=== PATIENT | male | born 1975 | race Caucasian/White ===

== ENCOUNTER 2021-10-07 06:02 | Emergency (ER) | payer OTHER, SELFPAY ==
--- NOTE | ~2021-10-07 | XR_ITS ---
EXAMINATION: XR CHEST CLINICAL INFORMATION: Sudden onset chest tightness COMPARISON: None TECHNIQUE: Frontal view of the chest was obtained. FINDINGS: The lungs are clear with no focal consolidation. No evidence of pneumothorax, pulmonary edema, or pleural effusions. The cardiomediastinal silhouette is unremarkable. No acute osseous findings. XR/XR chest 1V IMPRESSION: No acute cardiopulmonary findings.
[2021-10-07 06:13] VITALS: BP 125/77; BP 140/88; PULSE 77; PULSE 90; RESP 16; TEMP 36.6; O2SAT 98; O2SAT 99; BMI 30.5
--- NOTE | 2021-10-07 06:31 | ED_ITS ---
HPI - Chest Pain General Chief Complaint: Chest Pain Stated Complaint: cp Time Seen by Provider: 10/07/21 06:31 Source: patient Mode of arrival: EMS Limitations: no limitations History of Present Illness HPI narrative: 45-year-old male who presents emergency department for evaluation of chest pain. The patient states that he got up this morning at 04:30 hours and went to work. 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 He states that approximately 20 minutes after work he developed a discomfort in his chest. He points to his sternum when asked to localize the discomfort. He initially th ought that was a gas pain and he took an antacid without any relief. The pain then became a tightness which she states waxed and waned in intensity but was 7/10 at its worst. He states he does have anxiety and he took Xanax 0.25 mg orally with no relief of his discomfort. He developed nausea and attempted to make himself vomit but was unsuccessful. He states that his tightness got worse and he was doubled over and his colleagues called an ambulance. The paramedics did a 12 EKG in the field which was unremarkable. They gave him four 81 mg aspirin to chew and 1 sublingual nitroglycerin with no relief his discomfort. At the time of my evaluation he states that he has continued to have chest tightness and that it 7/10, this pain is been present for 1 hour. He denied radiation of the pain to his neck, jaw or back. He denied fever, chills, sore throat, cough, diaphoresis, lightheadedness or dizziness. He has no significant cardiac risk factors. There is no family history of early coronary artery disease. MD complaint: chest pain Pertinent past history: other (GERD) Onset (ago): hour(s) (1) Timing of current episode: constant (Waxing and waning in intensity) Prior episodes: No Onset: during exertion (Moving boxes at work) Pain location: substernal Pain radiation: none Severity: severe Pain scale (0-10): 7 Quality: tightness Relieving factors: nothing Exacerbating factors: nothing Associated symptoms: nausea Treatment prior to arrival: aspirin and nitroglycerin Risk Factors Coronary artery disease risk factors: none Thoracic aortic dissection risk factors: none Related Data Allergies Allergy/AdvReac Type Severity Reaction Status Date / Time acetaminophen [From PERCOCET] Allergy Unknown RASH Unverified 12/04/19 14:58 oxycodone [From PERCOCET] Allergy Unknown RASH Unverified 12/04/19 14:58 methylprednisolone AdvReac Unknown ANXIETY Unverified 12/04/19 14:58 [From MEDROL] Review of Systems Review of Systems: Yes all other systems are reviewed and are negative [facility] Past Medical History [facility] Narrative: Past medical history: Anxiety, GERD-takes omeprazole daily. Past surgical history: Back surgery x2 2009 2010. Social history: Patient denies tobacco and alcohol use. He does smoke marijuana on a regular basis but states he has not smoked marijuana in 5 days. Social History Social History Patient Tobacco Use Status: Never used Tobacco Use of substances other than those prescribed or required for medical reasons: Yes Substance Use Type: Marijuana Advance Directives: No Physical Exam Vital Signs: Vital Signs: Last Vital Signs Temp 97.8 F 10/07/21 06:13 Pulse 68 10/07/21 11:44 Resp 18 10/07/21 11:44 BP 141/81 H 10/07/21 11:44 Pulse Ox 96 10/07/21 11:44 O2 Del Method 10/07/21 11:44 BMI result Body Mass Index 30.5 Const: General: cooperative and no acute distress Orientation/consciousness: oriented to person and oriented to place Limitations: no limitations HEENT: Head: Yes normal to inspection, Yes normocephalic and Yes atraumatic Ears: external ears normal General nose exam: Normal external nose present Face and sinus: Yes normal facial exam Mouth: Normal oral and palatal mucosa present Throat: Yes posterior oropharynx normal Eyes: General: appearance normal, both eyes and all related structures Pupils: Equal, round and reactive pupils present Neck: Neck: Yes normal visual inspection, Yes no lymphadenopathy, Yes trachea midline and Yes supple Chest: Chest palpation & inspection: normal inspection of the chest and normal palpation of entire chest wall Resp: Effort & Inspection: normal respiratory effort and able to speak in complete sentences Auscultation: clear to auscultation bilaterally Cardio: Rate: regular rate Rhythm: regular rhythm Heart sounds: S1 normal heart sound present, S2 normal heart sound present and no murmurs GI: Inspection: Yes normal to inspection Palpation (GI): Soft to palpation, nontender and no guarding Auscultation: normal bowel sounds : General: Yes no CVA tenderness Back/Spine/Pelvis: Back: no CVA tenderness Skin: General skin exam: no rashes or lesions noted Neuro: General: oriented to person and oriented to place Cranial nerves: Yes CN's II-XII intact bilaterally and Yes Equal, round and reactive pupils present Cognition (Neuro): normal cognition Motor exam (neuro): 5/5 motor strength present throughout Extrem: General: Yes normal to inspection Psych: Appearance: grossly normal Speech and movement: Normal speech and movement present Affect: normal affect Attitude: cooperative Thought process: Normal thought process present Thought content: Normal thought content present Course Course Course Narrative: 45-year-old male who presents emergency department for evaluation of sudden onset substernal chest pain associated with nausea and anxiety which started approximately 20 minutes after he arrived at work, 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 Patient took an antacid and Xanax 0.25 mg at work with no relief his pain his pain got worse and coworkers called an ambulance . The patient received 324 mg of aspirin to chew and nitroglycerin sublingually prior to coming to emergency department with no relief his discomfort. At the time of evaluation the patient was having substernal chest tightness 7/10. Pat ient's vital signs were normal examination was unremarkable. Twelve EKG done in the emergency department revealed no evidence for ischemia or myocardial injury. Laboratory evaluation was ordered. Chest x-ray will be obtained. The patient is PERC negative. Patient was ordered to get Toradol 30 mg IV and Versed 2 mg IV for his pain and anxiety. Patient will be kept on a cardiac and O2 saturati on monitor while in the department. 1119: Laboratory evaluation: CBC and CMP were normal. COVID-19 was negative. First troponin was below detectable limits. Repeat 3 hour troponin was also below detectable limits. Radiology evaluation: Chest x-ray was unremarkable. EKG: Normal sinus rhythm with a rate of 62, prolonged QRS of 112 milliseconds, inverted T-waves V1 in V 3 otherwise unremarkable. The patient got initial improvement with the above treatment but then his chest pain returned. I will repeat his EKG. Patient is PERC negative. The patient's negative troponins are reassuring. Patient's presentation is most likely caused by his GERD I suspect that he has esophageal spasm. Patient was ordered to get Maalox 30 cc, viscous lidocaine 10 cc and 10 cc orally to see if this improves his pain. 1209: Repeat EKG was unchanged from the previous. Patient did get improvement with the above oral medications. The patient states that he does not take omeprazole on a regular basis but only takes it as needed . Patient was advised to take Pepcid (famotidine) 20 mg once a day for 4-6 weeks. 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 MDM - Chest Pain Lab Data Result diagrams: 10/07/21 06:58 10/07/21 06:58 Labs: Lab Results 10/07/21 10/07/21 10/07/21 Range/Units 06:58 06:58 06:58 WBC 6.0 (4.8-10.8) X10*3/uL RBC 4.65 (4.60-5.80) X10*6/uL Hgb 13.6 L (14.0-18.0) g/dl Hct 39.9 L (42.0-52.0) % MCV 85.8 (80.0-98.0) fL MCH 29.2 (27.0-33.0) pg MCHC 34.1 (31.0-36.0) g/dl RDW 13.1 (11.0-16.0) % Plt Count 336 (160-400) X10*3/uL MPV 8.6 L (9.4-12.4) fL Immature Gran % (Auto) 0.3 (0.0-0.4) % Neut % (Auto) 65.2 (45-73) % Lymph % (Auto) 25.1 (20-40) % [place] % (Auto) 8.0 (2-11) % Eos % (Auto) 0.7 (0-4) % Baso % (Auto) 0.7 (0-2) % Lymph # (Auto) 1.5 (1.2-4.9) X10*3/uL [place] # (Auto) 0.5 (0.1-1.2) X10*3/uL Eos # (Auto) 0.0 (0.0-0.4) X10*3/uL Baso # (Auto) 0.0 (0.0-0.2) X10*3/uL Abs Immat Gran (auto) 0.02 (0.00-0.03) X10*3/uL Absolute Neuts (auto) 3.9 (2.0-8.3) x10*3/uL Absolute Nucleated RBC 0.000 (0.0-0.012) X10*3/uL Nucleated RBC % (auto) 0.0 (0.0-0.2) /100WBC PT (10.0-13.1) SEC INR (0.9-1.1) APTT (24.1-38.0) SEC Sodium 140 (135-145) mmol/L Potassium 3.6 (3.3-5.1) mmol/L Chloride 107 (96-108) mmol/L Carbon Dioxide 24 (22-29) mmol/L Anion Gap 13 (12-20) BUN 16 (9-16) mg/dL Creatinine 0.80 (0.5-1.4) mg/dL Estim Creat Clear Calc 141.0 Estimated GFR > 60 Random Glucose 101 (60-115) mg/dL Calcium 9.2 (8.4-10.2) mg/dL Total Bilirubin 0.6 (0.0-1.0) mg/dL AST 16 (5-37) U/L ALT 18 (0-40) U/L Alkaline Phosphatase 62 (39-117) U/L Troponin I High Sens (<3.5-35.0) ng/L Total Protein 6.9 (6.5-8.0) g/dL Albumin 4.7 (3.5-5.0) g/dL Lipase 22 (8-78) U/L COVID-19 (BETY) Negative (Negative) COVID-19 Clin Com See Note 10/07/21 10/07/21 10/07/21 Range/Units 06:58 06:58 10:26 WBC (4.8-10.8) X10*3/uL RBC (4.60-5.80) X10*6/uL Hgb (14.0-18.0) g/dl Hct (42.0-52.0) % MCV (80.0-98.0) fL MCH (27.0-33.0) pg MCHC (31.0-36.0) g/dl RDW (11.0-16.0) % Plt Count (160-400) X10*3/uL MPV (9.4-12.4) fL Immature Gran % (Auto) (0.0-0.4) % Neut % (Auto) (45-73) % Lymph % (Auto) (20-40) % [place] % (Auto) (2-11) % Eos % (Auto) (0-4) % Baso % (Auto) (0-2) % Lymph # (Auto) (1.2-4.9) X10*3/uL [place] # (Auto) (0.1-1.2) X10*3/uL Eos # (Auto) (0.0-0.4) X10*3/uL Baso # (Auto) (0.0-0.2) X10*3/uL Abs Immat Gran (auto) (0.00-0.03) X10*3/uL Absolute Neuts (auto) (2.0-8.3) x10*3/uL Absolute Nucleated RBC (0.0-0.012) X10*3/uL Nucleated RBC % (auto) (0.0-0.2) /100WBC PT 11.1 (10.0-13.1) SEC INR 1.0 (0.9-1.1) APTT 37.5 (24.1-38.0) SEC Sodium (135-145) mmol/L Potassium (3.3-5.1) mmol/L Chloride (96-108) mmol/L Carbon Dioxide (22-29) mmol/L Anion Gap (12-20) BUN (9-16) mg/dL Creatinine (0.5-1.4) mg/dL Estim Creat Clear Calc Estimated GFR Random Glucose (60-115) mg/dL Calcium (8.4-10.2) mg/dL Total Bilirubin (0.0-1.0) mg/dL AST (5-37) U/L ALT (0-40) U/L Alkaline Phosphatase (39-117) U/L Troponin I High Sens < 3.5 < 3.5 (<3.5-35.0) ng/L Total Protein (6.5-8.0) g/dL Albumin (3.5-5.0) g/dL Lipase (8-78) U/L COVID-19 (BETY) (Negative) COVID-19 Clin Com ECG Data ECG #1: Attestation: I personally reviewed and interpreted this ECG as follows: Interpretation: 0624: Normal sinus rhythm with a rate of 62, normal ID interval, prolonged QRS duration of 112 milliseconds, normal QTC of 434 milliseconds, no ST segment elevation, no ST segment depression, inverted T-waves in V 1 and V 3, no PACs, no PVCs, no Q-waves. Discharge Plan Discharge Clinical Impression: Chest pain, GERD (gastroesophageal reflux disease), Spasm of esophagus Patient Disposition: Home, Self-Care Instructions: Gastroesophageal Reflux Disease (ED), Esophageal Spasm (ED) Additional Instructions: Your laboratory evaluation was normal. Your troponin (marker of heart attack) initially was below detectable limits and the repeat 3 hour troponin was also below detectable limits which is very reassuring suggesting that your chest pain is not caused by a heart attack. Your chest x-ray was unremarkable per Your EKG is unchanged from baseline. At this time, I believe that your chest pain is due to too much acid in your stomach and this acid refluxing on to your esophagus (the tube that connects your mouth her stomach) causing you to have spasm of the esophagus muscle Take Pepcid (famotidine) 20 mg, 1 pill once a day for 4-6 weeks. This medic ation is an H2 raul and this reduces the amount of acid that your stomach makes and help her stomach and esophagus heal.
[2021-10-07] MEDS: Ketorolac Tromethamine 15 MG/ML VIAL IVPUSH (06:42)
[2021-10-07 07:04] LABS: MANUAL DIFF FLAG NO
[2021-10-07 07:05] LABS: Basophils Percent Auto 0.7 % (0-2); Eosinophils Percent Auto 0.7 % (0-4); Hematocrit 39.9 % (42.0-52.0); Hemoglobin 13.6 g/dl (14.0-18.0); Imm Gran Abs Auto 0.02 X10*3/uL (0.00-0.03); Imm Gran Pct Auto 0.3 % (0.0-0.4); Lymphocytes Absolute Auto 1.5 X10*3/uL (1.2-4.9); Lymphocytes Percent Auto 25.1 % (20-40); Mean Corpuscular HGB Conc 34.1 g/dl (31.0-36.0); Mean Corpuscular Hemoglobin 29.2 pg (27.0-33.0); Mean Corpuscular Volume 85.8 fL (80.0-98.0); Mean Platelet Volume 8.6 fL (9.4-12.4); Monocytes Absolute Auto 0.5 X10*3/uL (0.1-1.2); Neutrophils Absolute Auto 3.9 x10*3/uL (2.0-8.3); Neutrophils Percent Auto 65.2 % (45-73); Platelet Count 336 X10*3/uL (160-400); Red Blood Count 4.65 X10*6/uL (4.60-5.80); Red Cell Distribution Width 13.1 % (11.0-16.0)
[2021-10-07 07:11] LABS: Prothrombin Time 11.1 SEC (10.0-13.1)
[2021-10-07 07:14] LABS: Partial Thromboplastin Time 37.5 SEC (24.1-38.0)
[2021-10-07 07:18] VITALS: BP 116/82; PULSE 69; RESP 18; O2SAT 97
[2021-10-07] MEDS: Midazolam HCl/PF 2 MG/2 ML VIAL IVPUSH (07:19)
--- NOTE | 2021-10-07 07:20 | ECG_ITS ---
Test Reason : CHEST PAIN Blood Pressure : / mmHG Vent. Rate : 062 BPM Atrial Rate : 062 BPM P-R Int : 160 ms QRS Dur : 112 ms QT Int : 428 ms P-R-T Axes : 018 062 029 degrees QTc Int : 434 ms Normal sinus rhythm [place] T wave changes - consider ischemia Abnormal ECG When compared with ECG of 17-JUN-2002 16:17, Precordial T wave changes noted Referred By: Miguel Collins Electronically Signed By:Jorge Del Castillo
[2021-10-07 07:22] LABS: COVID-19 Test Negative (Negative); IDNOW Serial# 08D9AD1C
[2021-10-07 07:28] LABS: Alanine Aminotransferase 18 U/L (0-40); Albumin Level 4.7 g/dL (3.5-5.0); Alkaline Phosphatase 62 U/L (39-117); Anion Gap 13 (12-20); Aspartate Amino Transferase 16 U/L (5-37); Bilirubin Total 0.6 mg/dL (0.0-1.0); Blood Urea Nitrogen 16 mg/dL (9-16); Calcium 9.2 mg/dL (8.4-10.2); Carbon Dioxide 24 mmol/L (22-29); Chloride 107 mmol/L (96-108); Estimated Glomerular Filt Rate > 60; Glucose Random 101 mg/dL (60-115); Lipase 22 U/L (8-78); Potassium 3.6 mmol/L (3.3-5.1); Sodium 140 mmol/L (135-145); Total Protein 6.9 g/dL (6.5-8.0)
[2021-10-07 07:30] LABS: Troponin-I High Sensitivity < 3.5 ng/L (<3.5-35.0)
[2021-10-07 09:48] VITALS: BP 129/82; PULSE 61; RESP 18; O2SAT 98
--- NOTE | 2021-10-07 09:49 | PC.NURSE ---
pt reports that the chest tightness is starting to come back, pain at 2/10 pt states it feels like gas
[2021-10-07 10:58] LABS: Troponin-I High Sensitivity < 3.5 ng/L (<3.5-35.0)
--- NOTE | 2021-10-07 11:21 | ECG_ITS ---
Test Reason : chest pain Blood Pressure : / mmHG Vent. Rate : 061 BPM Atrial Rate : 061 BPM P-R Int : 176 ms QRS Dur : 106 ms QT Int : 430 ms P-R-T Axes : 006 038 015 degrees QTc Int : 432 ms Normal sinus rhythm Normal ECG When compared with ECG of 07-OCT-2021 06:24, No significant change was found Referred By: Miguel Collins Electronically Signed By:Jorge Del Castillo
[2021-10-07] MEDS: Lidocaine HCl Viscous 2 % 15 ML SOLUTION 10 ML PO (11:40)
[2021-10-07] MEDS: Magnesium Hydrox/Alum Hydrox 30 ML ORAL.SUSP PO (11:40)
[2021-10-07] MEDS: PHENobarb/Hyoscy/Atropine/Scop 10 ML ELIXIR PO (11:41)
[2021-10-07 11:44] VITALS: BP 141/81; PULSE 68; RESP 18; O2SAT 96
[2021-10-07 12:30] VITALS: BP 129/83; PULSE 60; RESP 16; O2SAT 97
== END 2021-10-07 13:18 | disposition home or self-care (01) ==
PROVIDERS: Emergency Provider Emergency Medicine Emergency Medical Services
DX: R07.9 Chest pain, unspecified (principal); K21.9 Gastro-esophageal reflux disease without esophagitis; K22.4 Dyskinesia of esophagus; Z20.822 Contact with and (suspected) exposure to COVID-19; F12.90 Cannabis use, unspecified, uncomplicated
CPT/HCPCS: 36415; 71045; 80053; 83690; 84484; 85025; 85610; 85730; 87635; 93005; 96374; 96375; 99285; J1885; J2250

== ENCOUNTER → 2022-04-20 08:29 | Outpatient (BNVA) | payer OTHER, SELFPAY | PROVIDERS: Visit Provider Physician Assistant Medical | DX: S90.32XA Contusion of left foot, initial encounter (principal); W20.8XXA Other cause of strike by thrown, projected or falling object, initial encounter | CPT/HCPCS: 73630 ==

== ENCOUNTER → 2022-04-24 08:05 | Outpatient (BNVA) | payer OTHER, SELFPAY | PROVIDERS: Visit Provider Physician Assistant Medical | DX: S90.32XA Contusion of left foot, initial encounter (principal); W20.8XXA Other cause of strike by thrown, projected or falling object, initial encounter | CPT/HCPCS: 99213 ==

== ENCOUNTER 2023-05-08 12:01 | Emergency (ER) | payer OTHER, SELFPAY ==
--- NOTE | ~2023-05-08 | CT_ITS ---
EXAMINATION: CT chest wo IV con, CT abdomen pelvis wo IV con CLINICAL INFORMATION: Reason for Exam free air? chest/epigastric pain. black stool? COMPARISON: MRI brain 12/18/2018. TECHNIQUE: Unenhanced CT of the chest, abdomen pelvis with multiple coronal and sagittal reformatted images. Intravenous Contrast: None This CT examination was performed using dose optimization techniques as appropriate, variously including the following: *Automated exposure control *Adjustment of mA and/or kV according to patient size (this includes techniques or standardized protocols for targeted exams where dose is matched to indication/reason for exam; i.e. extremities or head) *Use of iterative reconstruction technique DLP: 948 mGy-cm FINDINGS: Lungs and pleura: No pulmonary consolidation or suspicious pulmonary nodules. No endobronchial lesions or endobronchial mural thickening. No suspicious pulmonary groundglass opacities. No effusions or pneumothoraces. Mediastinum: The thyroid is partially included in the image [id number] and is normal in appearance. The thoracic aorta is normal in caliber Merr[place] no abnormal mediastinal fluid collections. No mediastinal lymphadenopathy. The heart size is normal. No pericardial thickening or fluid collections. Coronary artery calcification: None observed. CHEST WALL: No axillary lymphadenopathy. No chest wall inflammatory changes identified. Liver: Normal. Biliary system: Physiologically distended gallbladder. No pericholecystic fluid collections. No cholelithiasis visualized though CT has low sensitivity in the detection of cholelithiasis. No biliary duct dilatation. Pancreas: Normal. Spleen: Normal. Adrenal glands: Normal. Kidneys: Right kidney: 3 calculi within the inferior pelvis, the largest measuring 3 mm x 2 mm. Single 2.5 mm calculus within the superior right pelvis. No hydronephrosis or perinephric inflammatory changes. Left kidney: 4 mm x 2 mm calculus within the inferior pole. No hydronephrosis or perinephric inflammatory changes. The ureters are normal in appearance. No urolithiasis identified. Urinary bladder: Decompressed. Prostate and seminal vesicles: Normal in appearance with incidental note made of scattered dystrophic benign-appearing prosthetic calcifications. Gastrointestinal system: Mural stratification is noted in scattered colonic segments suggesting areas of submucosal lipomatous infiltration which may be the sequela of inflammatory bowel disease. No colonic dilatation or pericolonic inflammatory changes identified. Mild mural stratification of the terminal ileum is identified. The appendix is normal in appearance. No pneumatosis intestinalis visualized. Prominence of the presacral fat is noted to a AP dimension of 3.5 cm. There is a mural thickening measure 4 mm in maximum width. No small bowel dilatation or pneumatosis intestinalis noted. The stomach and duodenum are normal in appearance. No free intraperitoneal fluid or gas collections are visualized. Incidental note is made of pelvic phleboliths. Abdominal pelvic lymph nodes: No lymphadenopathy. Scattered benign-appearing normal-sized lymph nodes are noted within the small bowel mesentery. Abdominal pelvic vasculature: Minimal scattered eccentric punctate calcific plaques within the aortoiliac system. Normal abdominal aortic caliber. Abdominal wall: No hernias. Osseous structures: No arthropathic changes of the sacroiliac joints. Vertebral body levels are enumerated with reference to the first rib bearing vertebral body presumed to represent T1. On this basis, near-complete bilateral lumbarization of the S1 vertebral body is noted and bilateral S1 pars interarticularis defects are present with 2 mm grade 1 S1-S2 anterolisthesis and 3 mm L4-L5 retrolisthesis. Marked intervertebral disc space narrowing and vacuum phenomena L5-S1. Moderate S1-S2 intervertebral disc space narrowing is visualized. Endplate osteophytosis results in at least mild-moderate bilateral L5-S1 foraminal stenoses. CT/CT abdomen pelvis wo IV con IMPRESSION: Unenhanced CT of the chest, abdomen and pelvis: *No acute abnormalities identified. *Findings mildly suspicious for the chronic sequela of inflammatory bowel disease. Multifocal colonic mural thickening characterized by lipomatous submucosal thickening is present with similar findings noted in the terminal ileum. Findings may represent the chronic sequela of inflammatory bowel disease, in particular ulcerative colitis. The current examination demonstrates no free intraperitoneal fluid or gas collections or pneumatosis intestinalis. The regions of colonic mural thickening are just at the upper limits of expected normal limits of size. Additionally, mild prominence of the presacral fat is present. These findings collectively are mildly suspicious for the chronic sequela of inflammatory bowel disease. *Bilateral nonobstructing nephrolithiasis as detailed above. The largest discrete calculus measures 4 mm x 2 mm and is present within the inferior pole the left kidney. No hydronephrosis or ureterectasis. No perinephric inflammatory changes. *Normal appendix. Lungs clear. 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 Findings are described in further detail above and give rise to possible ambiguity in vertebral body level enumeration. Enumerated vertebral bodies with reference to the presumed lumbarized S1 vertebral body, bilateral S1 pars interarticularis defects are present along with multilevel chronic spondylosis of the lumbosacral spine as detailed above.
[2023-05-08 12:36] VITALS: BP 128/98; PULSE 88; RESP 19; TEMP 36.6; O2SAT 98; BMI 27.8
--- NOTE | 2023-05-08 12:39 | ECG_ITS ---
Test Reason : epigastric pain Blood Pressure : / mmHG Vent. Rate : 084 BPM Atrial Rate : 085 BPM P-R Int : 170 ms QRS Dur : 102 ms QT Int : 388 ms P-R-T Axes : 059 068 040 degrees QTc Int : 458 ms Normal sinus rhythm Minimal voltage criteria for LVH, may be normal variant ( [facility] product ) Borderline ECG When compared with ECG of 07-OCT-2021 11:34, Nonspecific T wave abnormality no longer evident in Anterior leads Referred By: Sawyer De León Electronically Signed By:JUMANA KLINE MD
--- NOTE | 2023-05-08 12:42 | ED.GENADULT ---
HPI - General Adult General Chief complaint: GI Bleed Stated complaint: Stomach Pain Dark Stool Time Seen by Provider: 05/08/23 18:13 Source: patient Mode of arrival: ambulatory Limitations: no limitations History of Present Illness HPI narrative: Patient is a 47-year-old male who presents emergency department for evaluation of epigastric pain and melena. He reports 4 days ago feeling constipated, he began taking MiraLax which he purchased [id number], and subsequently had to normal stools that were black in color. Denies the use of Pepto-Bismol or iron supplements, denies any bright red blood per rectum or history of similar in the past. For the past 2 days he has continued to feel constipated again. Pain is localized to his epigastric area it is intermittent in nature, describes this as a tight spasming sensation, reports that this happened similarly about a year and a half ago and he presented to the ED for evaluation and was advised it was secondary to GERD and esophageal spasming. Has had recurrent episodes since that initial visit usually when he does not follow dietary restrictions as advised. Reports having had a colonoscopy routinely done at [facility] approximately 6 weeks ago, reports it was normal advised have follow-up in 10 years, he does state that he was told while still recovering from the anesthesia ?there is some inflammation stopped taking ibuprofen?. Patient reports that he never takes ibuprofen, but he did not think much of this, and denies having had an endoscopy at the same time. Denies any history of chronic constipation/diarrhea, bright red blood per rectum, melena, mucus in stools. Related Data Previous Rx's Medication Instructions Recorded ibuprofen 800 mg tablet 800 mg PO TID #30 tabs 04/20/22 aluminum-mag hydroxide-simethicone 10 ml PO QID PRN indigestion 05/08/23 200 mg-200 mg-20 mg/5 mL oral susp #3,000 mL (Maalox Advanced) famotidine 20 mg tablet (Pepcid) 20 mg PO DAILY #14 tabs 05/08/23 Allergies Allergy/AdvReac Type Severity Reaction Status Date / Time oxycodone [From PERCOCET] Allergy Unknown RASH Verified 05/08/23 19:22 methylprednisolone AdvReac Unknown ANXIETY Verified 05/08/23 19:22 [From MEDROL] Review of Systems Review of Systems: Yes all other systems are reviewed and are negative PMFSH Past Medical History Attestation statement: The following information was validated with the patient. Source: old records reviewed Social History Social History Patient Tobacco Use Status: Never used Tobacco Smoked in Last 30 Days: No Substance Use Type: Marijuana Advance Directives: No Physical Exam ED Vital Signs: Vital Signs - 24 hr 05/08/23 12:36 05/08/23 19:08 05/08/23 19:52 Temperature 98 F 97.9 F Pulse Rate 88 66 67 Respiratory Rate 19 17 18 Blood Pressure 128/98 H 125/74 135/71 Pulse Oximetry 98 98 96 Oxygen Delivery Method Room Air Room Air Room Air 05/08/23 21:33 Temperature 98.3 F Pulse Rate 67 Respiratory Rate 15 Blood Pressure 121/63 Pulse Oximetry 97 Oxygen Delivery Method Room Air BMI result Body Mass Index 27.8 Appearance: Alert.?Oriented to person, place and time. No acute distress.?Normal affect. Eyes: Pupils equal, round and reactive to light.? ENT: Pharynx normal.?? Neck: Normal inspection.? Neck supple.?? CVS: Heart sounds normal. Normal heart rate and rhythm.? Pulses normal.?? Respiratory: No respiratory distress.? Lung sounds clear to auscultation bilaterally?? Abdomen: Soft and non-tender. Normoactive bowel sounds. No CVA tenderness Skin: Skin warm and dry.? Normal skin color.? Extremities: No lower extremity edema.? Neuro: Moves all extremities spontaneously. Sensation intact bilaterally. No focal neuro deficits. Ambulates with normal steady gait. Course Course Course Narrative: RME: 47 yold male presents to the ED for epigastric abdominal pain, burping, nausea, and black stool. Last saw black stool two days ago. not on any peptobismal or iron pills. labs dry ct ordered to rule out free marv. Reevaluation(s) Reevaluation #1: CT Abdomen: show early thickening of colon, bilateral renal calculi with no hydro. Time: 14:55 Medications Administered Discontinued Medications Generic Name Dose Route Start Last Admin Trade Name Freq PRN Reason Stop Dose Admin Al Hydroxide/Mg Hydroxide 30 ml 05/08/23 18:45 05/08/23 19:06 Magnesium Hydrox/Alum Hydrox 30 Ml Oral.Susp PO 05/08/23 18:46 30 ml ONCE ONE Administration Famotidine 20 mg 05/08/23 18:45 05/08/23 19:06 Famotidine 20 Mg Tablet PO 05/08/23 18:46 20 mg ONCE ONE Administration Sodium Chloride 1,000 mls @ 999 mls/hr 05/08/23 18:30 05/08/23 21:44 Ns IV 05/08/23 19:30 Infused .Q1H1M ILSA Infusion Lidocaine HCl 15 ml 05/08/23 18:45 05/08/23 19:07 Lidocaine Hcl Viscous 2 % 15 Ml Solution MUCOUS MEM 05/08/23 18:46 15 ml ONCE ONE Administration Ondansetron HCl 4 mg 05/08/23 18:18 05/08/23 19:31 Ondansetron Hcl 4 Mg/2 Ml Vial IVPUSH 05/08/23 18:19 4 mg ONCE ONE Administration Medical Decision Making Medical Decision Making MDM Narrative: Patient is a 47-year-old male who presents emergency department for evaluation of epigastric pain and melena as per HPI. Abdominal examination reveals epigastric tenderness upon palpation otherwise without rigidity guarding, Salter sign is negative, no rebound tenderness. Rectal examination performed with ED senior network administrator, no evidence of fissures, hemorrhoids, active bleeding. Occult stool specimen was obtained and negative. CBC is without leukocytosis or anemia. CMP is overall unremarkable. High sensitive troponin is negative, EKG reveals a normal sinus rhythm with ventricular rate of 84, QTC 458, no ST elevation, no ST depression, no acute ischemic changes I do not suspect ACS. CT of the chest is without acute pathology. CT abdomen and pelvis revealing findings concerning for chronic sequela of inflammatory bowel disease; particularly ulcerative colitis due to multifocal colonic mural thickening and Lipo modest submucosal thickening also involving the terminal ileum. ESR and CRP are within normal range, attempted to obtain records from [facility] regarding recent colonoscopy unfortunately these were unable to be obtained. Trialed GI cocktail with good response, pain resolved and has remained pain-free. Clinically I have a low suspicion for inflammatory bowel disease and/or an acute flare-up such, no indication for hospital admission at this time. Tolerating oral intake. Patient advised that he should follow up outpatient with his GI/PCP for any persistent symptoms. Discussed strict return precautions. Will send prescriptions for [facility]. Discussed strict return precautions. All questions answered. Differential Diagnosis Differential Diagnoses: The differential diagnosis associated with the presentation includes (See narrative above) Admission/Observation Consideration of admission/observation: Escalation of care including admission/observation considered (See narrative above) Lab Data MDM Lab Attestation statement: I reviewed the patient's lab results. (See narrative above) 05/08/23 13:01 05/08/23 13:01 Labs: Lab Results 05/08/23 05/08/23 05/08/23 Range/Units 13:01 18:47 18:49 WBC 8.3 (4.8-10.8) X10*3/uL RBC 5.16 (4.60-5.80) X10*6/uL Hgb 15.3 (14.0-18.0) g/dl Hct 44.2 (42.0-52.0) % MCV 85.7 (80.0-98.0) fL MCH 29.7 (27.0-33.0) pg MCHC 34.6 (31.0-36.0) g/dl RDW 13.0 (11.0-16.0) % Plt Count 387 (160-400) X10*3/uL MPV 8.8 L (9.4-12.4) fL Immature Gran % (Auto) 0.4 (0.0-0.4) % Neut % (Auto) 61.0 (45-73) % Lymph % (Auto) 29.9 (20-40) % Williams % (Auto) 7.9 (2-11) % Eos % (Auto) 0.2 (0-4) % Baso % (Auto) 0.6 (0-2) % Lymph # (Auto) 2.5 (1.2-4.9) X10*3/uL Williams # (Auto) 0.7 (0.1-1.2) X10*3/uL Eos # (Auto) 0.0 (0.0-0.4) X10*3/uL Baso # (Auto) 0.1 (0.0-0.2) X10*3/uL Abs Immat Gran (auto) 0.03 (0.00-0.03) X10*3/uL Absolute Neuts (auto) 5.0 (2.0-8.3) x10*3/uL Absolute Nucleated RBC 0.000 (0.0-0.012) X10*3/uL Nucleated RBC % (auto) 0.0 (0.0-0.2) /100WBC ESR 2 (0-15) MM/HR PT 12.4 (11.1-13.3) SEC INR 1.0 (0.9-1.1) APTT 33.9 (26.0-36.8) SEC Sodium 141 (135-145) mmol/L Potassium 4.2 (3.3-5.1) mmol/L Chloride 103 (96-108) mmol/L Carbon Dioxide 28 (22-29) mmol/L Anion Gap 14 (12-20) BUN 17 H (9-16) mg/dL Creatinine 0.95 (0.5-1.4) mg/dL Estim Creat Clear Calc 103.2 Estimated GFR > 60 Random Glucose 89 (60-115) mg/dL Calcium 10.1 D (8.4-10.2) mg/dL Total Bilirubin 0.8 (0.0-1.0) mg/dL AST 16 (5-37) U/L ALT 16 (0-40) U/L Alkaline Phosphatase 77 (39-117) U/L Troponin I High Sens < 2.7 (<3.5-35.0) ng/L C-Reactive Protein 0.12 (< or = 0.50) mg/dL Total Protein 7.8 (6.5-8.0) g/dL Albumin 4.9 (3.5-5.0) g/dL Lipase 32 (8-78) U/L Urine Color Urine Appearance Urine pH (5.0-9.0) Ur Specific Oakley (1.005-1.025) Urine Protein (Neg-Trace) mg/dL Urine Glucose (UA) (Negative) mg/dL Urine Ketones (Negative) mg/dL Urine Blood (Negative) Urine Nitrite (Negative) Ur Leukocyte Esterase (Negative) Urine RBC (0-2) /HPF Urine WBC (0-5) /HPF Ur Squamous Epith Cells (0-2) /HPF Urine Bacteria (None Seen) Hyaline Casts (0-2) /LPF Stool Occult Blood NEGATIVE (NEGATIVE) Influenza Type A (PCR) NEGATIVE (Negative) Influenza Type B (PCR) NEGATIVE (Negative) RSV RNA Qual (PCR) NEGATIVE (Negative) SARS-CoV-2 RNA (RT-PCR) NEGATIVE (Negative) 05/08/23 Range/Units 21:11 WBC (4.8-10.8) X10*3/uL RBC (4.60-5.80) X10*6/uL Hgb (14.0-18.0) g/dl Hct (42.0-52.0) % MCV (80.0-98.0) fL MCH (27.0-33.0) pg MCHC (31.0-36.0) g/dl RDW (11.0-16.0) % Plt Count (160-400) X10*3/uL MPV (9.4-12.4) fL Immature Gran % (Auto) (0.0-0.4) % Neut % (Auto) (45-73) % Lymph % (Auto) (20-40) % Williams % (Auto) (2-11) % Eos % (Auto) (0-4) % Baso % (Auto) (0-2) % Lymph # (Auto) (1.2-4.9) X10*3/uL Williams # (Auto) (0.1-1.2) X10*3/uL Eos # (Auto) (0.0-0.4) X10*3/uL Baso # (Auto) (0.0-0.2) X10*3/uL Abs Immat Gran (auto) (0.00-0.03) X10*3/uL Absolute Neuts (auto) (2.0-8.3) x10*3/uL Absolute Nucleated RBC (0.0-0.012) X10*3/uL Nucleated RBC % (auto) (0.0-0.2) /100WBC ESR (0-15) MM/HR PT (11.1-13.3) SEC INR (0.9-1.1) APTT (26.0-36.8) SEC Sodium (135-145) mmol/L Potassium (3.3-5.1) mmol/L Chloride (96-108) mmol/L Carbon Dioxide (22-29) mmol/L Anion Gap (12-20) BUN (9-16) mg/dL Creatinine (0.5-1.4) mg/dL Estim Creat Clear Calc Estimated GFR Random Glucose (60-115) mg/dL Calcium (8.4-10.2) mg/dL Total Bilirubin (0.0-1.0) mg/dL AST (5-37) U/L ALT (0-40) U/L Alkaline Phosphatase (39-117) U/L Troponin I High Sens (<3.5-35.0) ng/L C-Reactive Protein (< or = 0.50) mg/dL Total Protein (6.5-8.0) g/dL Albumin (3.5-5.0) g/dL Lipase (8-78) U/L Urine Color Yellow Urine Appearance Clear Urine pH 5.5 (5.0-9.0) Ur Specific Oakley 1.015 (1.005-1.025) Urine Protein Negative (Neg-Trace) mg/dL Urine Glucose (UA) Negative (Negative) mg/dL Urine Ketones 40 (Negative) mg/dL Urine Blood Trace H (Negative) Urine Nitrite Negative (Negative) Ur Leukocyte Esterase Negative (Negative) Urine RBC 0-2 (0-2) /HPF Urine WBC 0-5 (0-5) /HPF Ur Squamous Epith Cells 0-2 (0-2) /HPF Urine Bacteria None Seen (None Seen) Hyaline Casts 0-2 (0-2) /LPF Stool Occult Blood (NEGATIVE) Influenza Type A (PCR) (Negative) Influenza Type B (PCR) (Negative) RSV RNA Qual (PCR) (Negative) SARS-CoV-2 RNA (RT-PCR) (Negative) Radiology Impression Discussion of test interpretation with radiology: I have reviewed the radiologist's reading. Radiologist Impression: CT/CT chest wo IV con IMPRESSION: Unenhanced CT of the chest, abdomen and pelvis: *No acute abnormalities identified. *Findings mildly suspicious for the chronic sequela of inflammatory bowel disease. Multifocal colonic mural thickening characterized by lipomatous submucosal thickening is present with similar findings noted in the terminal ileum. Findings may represent the chronic sequela of inflammatory bowel disease, in particular ulcerative colitis. The current examination demonstrates no free intraperitoneal fluid or gas collections or pneumatosis intestinalis. The regions of colonic mural thickening are just at the upper limits of expected normal limits of size. Additionally, mild prominence of the presacral fat is present. These findings collectively are mildly suspicious for the chronic sequela of inflammatory bowel disease. *Bilateral nonobstructing nephrolithiasis as detailed above. The largest discrete calculus measures 4 mm x 2 mm and is present within the inferior pole the left kidney. No hydronephrosis or ureterectasis. No perinephric inflammatory changes. *Normal appendix. Lungs clear. 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 Findings are described in further detail above and give rise to possible ambiguity in vertebral body level enumeration. Enumerated vertebral bodies with reference to the presumed lumbarized S1 vertebral body, bilateral S1 pars interarticularis defects are present along with multilevel chronic spondylosis of the lumbosacral spine as detailed above. Critical Care Time Critical Care Time Critical Care Time: Yes Total Critical Care Time: 40 Attestation: I personally attest to this critical care time spent taking care of the patient exclusive of all other billable procedures was approximately 40 minutes including initial evaluation of patient, ordering tests, x-ray interpretation, EKG interpretation, medical consultation, documentation, re-evaluation. Discharge Plan Discharge Clinical Impression: Chest pain, Gastroesophageal reflux disease Patient Disposition: Home, Self-Care Instructions: Gastroesophageal Reflux Disease (ED) Additional Instructions: Introduce a bland diet including crackers, bananas, rice, soup, toast, and boiled vegetables. This may progress to plain baked or boiled chicken or turkey. Avoid dairy products or foods high in fat or grease. Your blood work today was overall normal. The markers that usage check for signs of a heart attack were normal as well. I suspect that your pain is due to acid reflux, your symptoms did improve with medications used to treat acid reflux. I have sent a new prescription to your pharmacy for Pepcid and Maalox to help reduce the acid. Contact your primary care provider and arrange for follow-up visit for persistent symptoms. You may return back to emergency department any new or worsening symptoms or concerns. Prescriptions: New famotidine [Pepcid] 20 mg tablet 20 mg PO DAILY Qty: 14 0RF alum-mag hydroxide-simeth [Maalox Advanced] 200-200-20 mg/5 mL suspension 10 ml PO QID PRN (Reason: indigestion) Qty: 3000 0RF Rx Instructions: administer between meals and at bedtime No Action ibuprofen 800 mg tablet 800 mg PO TID Qty: 30 0RF Referrals: Gela Ferrari MD [Primary Care Provider] - Interventions: ED Discharge Assessment Last Done: 05/08/23 21:52 Discharge Date/Time: 05/08/23 21:52
[2023-05-08 13:10] LABS: MANUAL DIFF FLAG NO
[2023-05-08 13:13] LABS: Basophils Absolute Auto 0.1 X10*3/uL (0.0-0.2); Basophils Percent Auto 0.6 % (0-2); Eosinophils Percent Auto 0.2 % (0-4); Hematocrit 44.2 % (42.0-52.0); Hemoglobin 15.3 g/dl (14.0-18.0); Imm Gran Abs Auto 0.03 X10*3/uL (0.00-0.03); Imm Gran Pct Auto 0.4 % (0.0-0.4); Lymphocytes Absolute Auto 2.5 X10*3/uL (1.2-4.9); Lymphocytes Percent Auto 29.9 % (20-40); Mean Corpuscular HGB Conc 34.6 g/dl (31.0-36.0); Mean Corpuscular Hemoglobin 29.7 pg (27.0-33.0); Mean Corpuscular Volume 85.7 fL (80.0-98.0); Mean Platelet Volume 8.8 fL (9.4-12.4); Monocytes Absolute Auto 0.7 X10*3/uL (0.1-1.2); Monocytes Percent Auto 7.9 % (2-11); Platelet Count 387 X10*3/uL (160-400); Red Blood Count 5.16 X10*6/uL (4.60-5.80); White Blood Count 8.3 X10*3/uL (4.8-10.8)
[2023-05-08 13:17] LABS: Prothrombin Time 12.4 SEC (11.1-13.3)
[2023-05-08 13:19] LABS: Partial Thromboplastin Time 33.9 SEC (26.0-36.8)
[2023-05-08 13:25] LABS: Alanine Aminotransferase 16 U/L (0-40); Albumin Level 4.9 g/dL (3.5-5.0); Alkaline Phosphatase 77 U/L (39-117); Anion Gap 14 (12-20); Aspartate Amino Transferase 16 U/L (5-37); Bilirubin Total 0.8 mg/dL (0.0-1.0); Blood Urea Nitrogen 17 mg/dL (9-16); Calcium 10.1 mg/dL (8.4-10.2); Carbon Dioxide 28 mmol/L (22-29); Chloride 103 mmol/L (96-108); Creatinine Clr Calc Pharmacy 103.2; Estimated Glomerular Filt Rate > 60; Glucose Random 89 mg/dL (60-115); Lipase 32 U/L (8-78); Potassium 4.2 mmol/L (3.3-5.1); Sodium 141 mmol/L (135-145); Total Protein 7.8 g/dL (6.5-8.0)
[2023-05-08 13:33] LABS: Troponin-I High Sensitivity < 2.7 ng/L (<3.5-35.0)
[2023-05-08 18:41] LABS: C Reactive Protein 0.12 mg/dL (< or = 0.50)
[2023-05-08 18:52] LABS: OBS Int Ctl Valid YES; OBS1 NEGATIVE (NEGATIVE)
[2023-05-08 19:03] LABS: Erythrocyte Sedimentation Rate 2 MM/HR (0-15)
[2023-05-08] MEDS: Magnesium Hydrox/Alum Hydrox 30 ML ORAL.SUSP PO (19:06)
[2023-05-08] MEDS: Famotidine 20 MG TABLET PO (19:06)
[2023-05-08] MEDS: Lidocaine HCl Viscous 2 % 15 ML SOLUTION MUCOUS MEM (19:07)
[2023-05-08 19:08] VITALS: BP 125/74; PULSE 66; RESP 17; O2SAT 98
[2023-05-08] MEDS: ondansetron HCL 4 MG/2 ML VIAL IVPUSH (19:31)
[2023-05-08] MEDS: 0.9 % Sodium Chloride 1,000 ML 999 ML IV (19:31)
[2023-05-08 19:37] LABS: Influenza A PCR NEGATIVE (Negative); Influenza B PCR NEGATIVE (Negative); Resp Syncy Virus RNA Qual PCR NEGATIVE (Negative); SARS COV2 PCR INHOUSE NEGATIVE (Negative)
[2023-05-08 19:52] VITALS: BP 135/71; PULSE 67; RESP 18; TEMP 36.6; O2SAT 96
--- NOTE | 2023-05-08 19:52 | MHC.EDTECH ---
This tech took over care of patient at 1900,hourly rounds and vitals completed,Attempted to get a urine sample and patient is unable to at this time,will re-attempt.Call mitchell in reach
--- NOTE | 2023-05-08 21:13 | PC.NURSE ---
Took over care for this patient at 1900, IV line placed, fluids hung & zofran given per may. Patient resting comfortably on stretcher at this time.
[2023-05-08 21:21] LABS: Appearance Urine Clear; Color Urine Yellow; Glucose Urine UA Negative (Negative); Leukocyte Esterase Urine Negative (Negative); Nitrite Urine Negative (Negative); PH 5.5 (5.0-9.0); Specific Gravity - Urine 1.015 (1.005-1.025); UMIC TRIGGER UACC YES; Urine Blood Trace (Negative); Urine Ketones 40 mg/dL (Negative); Urine Protein Negative (Neg-Trace)
[2023-05-08 21:27] LABS: Bacteria Urine None Seen (None Seen); Hyaline Casts Urine 0-2 /LPF (0-2); RBC Urine 0-2 /HPF (0-2); Squamous Epithelial Cell Urine 0-2 /HPF (0-2); WBC Urine 0-5 /HPF (0-5)
[2023-05-08 21:33] VITALS: BP 121/63; PULSE 67; RESP 15; TEMP 36.8; O2SAT 97
== END 2023-05-08 21:52 | disposition home or self-care (01) ==
PROVIDERS: Nurse Practitioner Family; Physician Assistant; Emergency Provider Emergency Medicine Emergency Medical Services; PCP Family Medicine
DX: R07.89 Other chest pain (principal); K21.9 Gastro-esophageal reflux disease without esophagitis; R10.13 Epigastric pain; K59.00 Constipation, unspecified; Z20.822 Contact with and (suspected) exposure to COVID-19; Z11.52 Encounter for screening for COVID-19; Z79.899 Other long term (current) drug therapy
CPT/HCPCS: 0241U; 36415; 71250; 74176; 80053; 81001; 82272; 83690; 84484; 85025; 85610; 85652; 85730; 86140; 93005; 96361; 96374; 99284; 99285; J2405

== ENCOUNTER → 2023-05-08 12:39 | Outpatient (BNV) | payer OTHER, SELFPAY | PROVIDERS: Emergency Provider Emergency Medicine Emergency Medical Services; PCP Family Medicine; Visit Provider Internal Medicine Cardiovascular Disease | DX: R94.31 Abnormal electrocardiogram [ECG] [EKG] (principal) | CPT/HCPCS: 93010 ==